=== PATIENT | male | born 1970 | race Hispanic/Latino ===

== ENCOUNTER 2017-03-31 09:49 | Inpatient (IN) | payer OTHER ==
--- NOTE | 2017-03-31 10:20 | ED PDOC ---
Arrival/HPI - General Chief Complaint: Syncope Time Seen by Provider: 03/31/17 09:49 Historian: Patient - History of Present Illness Narrative History of Present Illness (Text): 03/31/17 09:54 Chuck Castellanos is a 46 year old male, whose past medical history includes hypertension, who presents to the emergency department complaining of a syncopal episode prior to arrival. Patient states that he was just returning home when a family member heard a loud sound and found patient on the floor. Patient is complaining of mild chest heaviness and left rib pain. Patient denies any headache or any other complaint at this time. PMD: Dr. Garsia Time/Duration: Prior to Arrival Symptom Onset: Sudden Symptom Course: Improving Activities at Onset: Light Context: Home Past Medical History - Provider Review Nursing Documentation Reviewed: Yes - Infectious Disease Hx of Infectious Diseases: None - Cardiac Hx Hypertension: Yes - Psychiatric Hx Depression: No Hx Emotional Abuse: No Hx Physical Abuse: No Hx Substance Use: No - Anesthesia Hx Anesthesia: No Hx Anesthesia Reactions: No Hx Malignant Hyperthermia: No - Suicidal Assessment Feels Threatened In Home Enviroment: No Family/Social History - Physician Review Nursing Documentation Reviewed: Yes Family/Social History: Unknown Family HX Smoking Status: Heavy Smoker > 10 Cigarettes Daily Hx Alcohol Use: No Hx Substance Use: No Hx Substance Use Treatment: No Allergies/Home Meds Allergies/Adverse Reactions: Allergies No Known Allergies Allergy (Verified 08/23/13 09:40) Review of Systems - Physician Review All systems were reviewed & negative as marked: Yes - Review of Systems Constitutional: absent: Fevers, Night Sweats Eyes: absent: Vision Changes ENT: absent: Hearing Changes Respiratory: absent: SOB Cardiovascular: Chest Pain (Chest heaviness and left rib pain) Gastrointestinal: absent: Abdominal Pain Genitourinary Male: absent: Dysuria, Urinary Output Changes Musculoskeletal: absent: Arthralgias, Back Pain, Neck Pain Skin: absent: Rash, Pruritis Neurological: absent: Headache, Dizziness Endocrine: absent: Diaphoresis Hemo/Lymphatic: absent: Adenopathy Psychiatric: absent: Anxiety Physical Exam Vital Signs Reviewed: Yes Vital Signs Temp Pulse Resp BP Pulse Ox 03/31/17 13:53 98 F 88 20 127/82 97 03/31/17 12:51 98 F 96 H 19 123/75 96 03/31/17 09:57 98.1 F 98 H 18 99/55 L 97 Temperature: Afebrile Blood Pressure: Hypotensive Pulse: Tachycardic Respiratory Rate: Normal Appearance: Positive for: Other (Diaphoretic) - Systems Exam Head: Present: Atraumatic, Normocephalic Pupils: Present: PERRL Extroacular Muscles: Present: EOMI Conjunctiva: Present: Normal Mouth: Present: Moist Mucous Membranes Neck: Present: Normal Range of Motion Respiratory/Chest: Present: Other (Tenderness to Left chest wall ) Cardiovascular: Present: Regular Rate and Rhythm, Normal S1, S2. No: Murmurs Abdomen: Present: Normal Bowel Sounds. No: Tenderness, Distention, Peritoneal Signs Back: Present: Normal Inspection Upper Extremity: Present: Normal Inspection. No: Cyanosis, Edema Lower Extremity: Present: Normal Inspection. No: Edema Neurological: Present: GCS=15, CN II-XII Intact, Speech Normal, Motor Func Grossly Intact, Normal Sensory Function, Normal Cerebellar Funct, Norm Deep Tendon Reflexes, Gait Normal, Memory Normal, Normal 2Pt Descrimination Skin: Present: Warm, Dry, Normal Color. No: Rashes Psychiatric: Present: Alert, Oriented x 3, Normal Insight, Normal Concentration Medical Decision Making ED Course and Treatment: 03/31/17 09:54 Impression: 46 year old male complaining of chest heaviness and left rib pain s/p syncopal episode prior to arrival. Differential Diagnosis include but are not limited to: Plan: -- EKG -- Chest X-ray -- Chest CT w/o contrast -- Head CT w/o contrast -- Urinalysis -- Labs -- Reassess and disposition Prior Visits Notes and results from previous visits were reviewed. Patient last seen in ED on08/23/13 for 2 weeks duration of foot pain. Patient was discharged home. Progress Notes: EKG shows questionable elevtaions inferiorly with lateral lead ST depressions. Discussed with Dr. Muniz, who requests to repeat EKG. Will not activate at this time. 03/31/17 11:16 Chest X-ray: Creator : Cristopher Ashford MD FINDINGS: LUNGS:No active pulmonary disease. PLEURA:No significant pleural effusion identified, no pneumothorax apparent. CARDIOVASCULAR:Normal. OSSEOUS STRUCTURES:No significant abnormalities. VISUALIZED UPPER ABDOMEN:Normal. OTHER FINDINGS:None. IMPRESSION: No active disease. 03/31/17 11:[address] w/o contrast: Creator : Cristopher Ashford MD FINDINGS: HEMORRHAGE:No intracranial hemorrhage. BRAIN:No mass effect or edema. No atrophy or chronic microvascular ischemic changes. VENTRICLES:Unremarkable. No hydrocephalus. CALVARIUM:Unremarkable. PARANASAL SINUSES:Unremarkable as visualized. No significant inflammatory changes. MASTOID AIR CELLS:Unremarkable as visualized. No inflammatory changes. OTHER FINDINGS:None. IMPRESSION: No acute findings 03/31/17 11:[address] w/o contrast: Creator : Cristopher Ashford MD FINDINGS: LUNGS:Minimal ground-glass densities. No focal consolidation. No pneumothorax MEDIASTINUM: Unremarkable thoracic aorta. No aneurysm. Normal sized heart. The coronary arteries are heavily calcified. Main pulmonary artery unremarkable. No vascular congestion. No lymphadenopathy. PLEURA:No pleural fluid. No pneumothorax. BONES:No fracture. No destructive lesion. UPPER ABDOMEN:Left adrenal nodules consistent with adenomas OTHER FINDINGS:None. IMPRESSION: No acute findings 03/31/17 11:28 Patient is pain free after Heparin started. Case discussed with Dr. Godinez, who requests hospitalist for admission. - Lab Interpretations Lab Results: 03/31/17 10:26 03/31/17 10:26 Lab Results 03/31/17 10:26: TSH 3rd Generation 6.29 H 03/31/17 10:26: Triglycerides 155, Cholesterol 206 H, LDL Cholesterol Direct 163 H, HDL Cholesterol 30 03/31/17 10:26: Sodium 138, Potassium 3.9, Chloride 109 H, Carbon Dioxide 17 L, Anion Gap 16, BUN 15, Creatinine 0.9, Est GFR ( Amer) > 60, Est GFR (Non- Af Amer) > 60, Random Glucose 145 H, Calcium 9.0, Magnesium 2.0, Total Bilirubin 0.3, AST 26, ALT 45, Alkaline Phosphatase 73, Lactate Dehydrogenase 528, Total Creatine Kinase 107, Troponin I 0.36 H*, NT-Pro-B Natriuret Pep 1210 H, Total Protein 6.9, Albumin 4.0, Globulin 2.8, Albumin/Globulin Ratio 1.4 03/31/17 10:26: PT 10.5, INR 0.97, APTT 33.1 H 03/31/17 10:26: WBC 8.3, RBC 4.86, Hgb 14.5, Hct 43.0, MCV 88.5, MCH 29.8, MCHC 33.7, RDW 13.6, Plt Count 217, MPV 11.3 H, Gran % 58.2, Lymph % (Auto) 30.0, [place] % (Auto) 6.7 H, Eos % (Auto) 4.7, Baso % (Auto) 0.4, Gran # 4.84, Lymph # 2.5, [place] # 0.6, Eos # 0.4, Baso # 0.03 - RAD Interpretation Radiology Orders: 03/31/17 10:11 HEAD W/O CONTRAST [CT] Stat CHEST PORTABLE [RAD] Stat 03/31/17 10:15 CHEST W/O CONTRAST [CT] Stat - Medication Orders Current Medication Orders: Acetaminophen (Tylenol 325mg Tab) 650 mg PO Q6H PRN PRN Reason: Fever >100.4 F Albuterol/Ipratropium (Duoneb 3 Mg/0.5 Mg (3 Ml) Ud) 3 ml IH [id number] CHRISTINE Last Admin: 03/31/17 15:07 Dose: 3 ml Albuterol/Ipratropium (Duoneb 3 Mg/0.5 Mg (3 Ml) Ud) 3 ml IH Q2H PRN PRN Reason: Shortness of Breath Alprazolam (Xanax) 0.5 mg PO TID PRN; Protocol PRN Reason: Anxiety Aspirin (Ecotrin) 81 mg PO DAILY CHRISTINE Atorvastatin Calcium (Lipitor) 40 mg PO DIN [facility]RISTINE Clopidogrel Bisulfate (Plavix) 75 mg PO DAILY [facility]INE Cyclobenzaprine HCl (Flexeril) 10 mg PO TID PRN PRN Reason: Muscle spasm Famotidine (Pepcid) 20 mg PO 1000,2200 CHRISTINE Gabapentin (Neurontin) 600 mg PO DAILY [facility] PRN Reason: Protocol Guaifenesin (Robitussin) 100 mg PO Q4H PRN PRN Reason: Cough Heparin Sodium/Sodium Chloride (Heparin 45283 Units/250ml 1/2 Normal Saline) 25 ,000 units in 250 mls @ 13.063 mls/hr IV .Q19H9M CHRISTINE; 12 UNITS/KG/HR PRN Reason: Protocol Last Admin: 03/31/17 12:09 Dose: 12 units/kg/hr, 13.063 mls/hr Sodium Chloride (Sodium Chloride 0.9%) 1,000 mls @ 100 mls/hr IV .Q10H [facility] Last Admin: 03/31/17 12:58 Dose: 100 mls/hr Metoprolol Tartrate (Lopressor) 25 mg PO BID [facility] Nicotine (Nicoderm Cq) 1 patch TD DAILY [facility] Last Admin: 03/31/17 12:56 Dose: Not Given Non-Admin Reason: Patient Refused Tramadol HCl (Ultram) 50 mg PO TID PRN PRN Reason: Pain, moderate (4-7) Last Admin: 03/31/17 13:24 Dose: 50 mg Discontinued Medications Aspirin (Aspirin) 325 mg PO STAT STA Stop: 03/31/17 11:17 Last Admin: 03/31/17 11:29 Dose: 325 mg Clopidogrel Bisulfate (Plavix) 75 mg PO DAILY [facility] Last Admin: 03/31/17 12:14 Dose: 75 mg Clopidogrel Bisulfate (Plavix) 300 mg PO STAT STA Stop: 03/31/17 14:00 Last Admin: 03/31/17 14:48 Dose: 300 mg Heparin Sodium (Porcine) (Heparin) 4,000 units IV ONCE ONE PRN Reason: Protocol Stop: 03/31/17 11:17 Last Admin: 03/31/17 11:32 Dose: 4,000 units Disposition/Present on Arrival - Present on Arrival Any Indicators Present on Arrival: No History of DVT/PE: No History of Uncontrolled Diabetes: No Urinary Catheter: No History of Decub. Ulcer: No History Surgical Site Infection Following: None - Disposition Have Diagnosis and Disposition been Completed?: Yes Diagnosis: NSTEMI (non-ST elevated myocardial infarction) Disposition: HOSPITALIZED Disposition Time: 12:00 Patient Problems: Current Active Problems Problem Status Onset NSTEMI (non-ST elevated myocardial infarction) Acute Condition: FAIR Critical Care Time - Critical Care Note Total Time (in mins): 45 Documented critical care: time excludes all time spent performing seperately billable procedures.
[2017-03-31 10:27] LABS: ADD MANUAL DIFF? NO
[2017-03-31 10:32] LABS: BASO # 0.03 K/mm3 (0.0-2.0); BASO % 0.4 % (0.0-3.0); EOS # 0.4 (0.0-0.7); EOS % 4.7 % (1.5-5.0); GRAN # 4.84 (1.4-6.5); GRAN % 58.2 % (50.0-68.0); LYMPH # 2.5 (1.2-3.4); MEAN CELL VOLUME 88.5 fL (80.0-105.0); MEAN CORPUSCULAR HEMOGLOBIN 29.8 pg (25.0-35.0); MEAN CORPUSCULAR HGB CONC 33.7 g/dl (31.0-37.0); MEAN PLATELET VOLUME 11.3 fl (7.0-11.0); MONO # 0.6 (0.1-0.6); MONO % 6.7 % (1.0-6.0); PLATELET COUNT 217 10^3/uL (120.0-450.0); RED CELL DISTRIBUTION WIDTH 13.6 % (11.5-14.5); WHITE BLOOD COUNT 8.3 10^3/ul (4.5-11.0)
[2017-03-31 10:41] LABS: ALB/GLOB RATIO 1.4 (1.1-1.8); ALKALINE PHOSPHATASE 73 U/L (38-133); ALT/SGPT 45 U/L (7-56); AST/SGOT 26 U/L (15-59); BILIRUBIN,TOTAL 0.3 mg/dL (0.2-1.3); BLOOD UREA NITROGEN 15 mg/dL (7-21); CARBON DIOXIDE 17 mmol/L (21-33); CHLORIDE 109 mmol/L (98-107); GFR AFRICAN-AMERICAN > 60; GLUCOSE,RANDOM 145 mg/dL (70-110); POTASSIUM 3.9 mmol/L (3.6-5.0); SODIUM 138 mmol/L (132-148); TOTAL PROTEIN 6.9 g/dL (5.8-8.3)
[2017-03-31 10:43] LABS: PARTIAL THROMBOPLASTIN TIME 33.1 Seconds (23.7-30.8)
[2017-03-31 10:45] LABS: INR 0.97 (0.93-1.08)
[2017-03-31 10:57] LABS: TROPONIN I 0.36 ng/mL
--- NOTE | 2017-03-31 11:07 | RAD ---
HISTORY: cp COMPARISON: 04/18/2016 FINDINGS: LUNGS: No active pulmonary disease. PLEURA: No significant pleural effusion identified, no pneumothorax apparent. CARDIOVASCULAR: Normal. OSSEOUS STRUCTURES: No significant abnormalities. VISUALIZED UPPER ABDOMEN: Normal. OTHER FINDINGS: None. IMPRESSION: No active disease.
--- NOTE | 2017-03-31 11:13 | CT ---
PROCEDURE: CT HEAD WITHOUT CONTRAST. HISTORY: syncope COMPARISON: None available. TECHNIQUE: Axial computed tomography images were obtained through the head/brain without intravenous contrast. Radiation dose: Total exam DLP = 778 mGy-cm. This CT exam was performed using one or more of the following dose reduction techniques: Automated exposure control, adjustment of the mA and/or kV according to patient size, and/or use of iterative reconstruction technique. FINDINGS: HEMORRHAGE: No intracranial hemorrhage. BRAIN: No mass effect or edema. No atrophy or chronic microvascular ischemic changes. VENTRICLES: Unremarkable. No hydrocephalus. CALVARIUM: Unremarkable. PARANASAL SINUSES: Unremarkable as visualized. No significant inflammatory changes. MASTOID AIR CELLS: Unremarkable as visualized. No inflammatory changes. OTHER FINDINGS: None. IMPRESSION: No acute findings
--- NOTE | 2017-03-31 11:17 | CT ---
PROCEDURE: CT Chest without contrast HISTORY: fall COMPARISON: None. TECHNIQUE: Contiguous axial images were obtained through the chest without intravenous contrast enhancement. Sagittal and coronal reconstructions were performed. Radiation dose (DLP): 976 mGy-cm. This CT exam was performed using one or more of the following dose reduction techniques: Automated exposure control, adjustment of the mA and/or kV according to patient size, and/or use of iterative reconstruction technique. FINDINGS: LUNGS: Minimal ground-glass densities. No focal consolidation. No pneumothorax MEDIASTINUM: Unremarkable thoracic aorta. No aneurysm. Normal sized heart. The coronary arteries are heavily calcified. Main pulmonary artery unremarkable. No vascular congestion. No lymphadenopathy. PLEURA: No pleural fluid. No pneumothorax. BONES: No fracture. No destructive lesion. UPPER ABDOMEN: Left adrenal nodules consistent with adenomas OTHER FINDINGS: None. IMPRESSION: No acute findings
[2017-03-31] MEDS: Heparin25000 units/250ml 1/2NS 25,000 UNITS/250 ML BAG IV SCH (12:09)
[2017-03-31] MEDS ORDERED: Albuterol-Ipratrop 3 mg / 0.5 (3 ml) UD IH PRN (12:31)
--- NOTE | 2017-03-31 12:45 | CP.PCM.HP ---
<Marian Daley - Last Filed: 03/31/17 12:38> History of Present Illness - History of Present Illness History of Present Illness: 46 M with PMHx of HTN, toboacco abuse, former ETOH abuse, and chronic pain syndrome presented to [facility] ED with complaints of a syncopal episode and chest pressure and pain. Pt states that he went about his usual routine this morning, took his medications and subsequently went for a walk. However, upon returning to his house he happened to experience an unwitnessed syncopal episode and when he came to he was in front of police officers. Pt states that his chest pain began after he gained conciousness and described it as a pressure pain that did not radiate. Rated at a 7/10 at the time of onset. He also had complaints of left rib pain. He denied headaches, changes in vision, confusion, dizziness, fever, chills, abdominal pains, v/d/c or urinary symptoms. He admitted to nausea prior to ED arrival, sob, and diaphoresis. PMHx: As above PSHx: Denied Shx: PPD smoker, Former drinker quit 4 yrs ago, admits to marijuana use Famhx: Denied Meds: Gabapentin, nebutone, flexeril, oxycodone, lisinopril, vit d2, naproxen, tramadol Allergies: NKDA PMD: Dr. Garsia Handicraft Or Hobby Shop Manager: Dr. Mayorga Present on Admission - Present on Admission Any Indicators Present on Admission: No Review of Systems - Review of Systems Review of Systems: as per HPI otherwise negative Past Patient History - Infectious Disease Hx of Infectious Diseases: None - Past Social History Smoking Status: Heavy Smoker > 10 Cigarettes Daily - CARDIAC Hx Hypertension: Yes - PSYCHIATRIC Hx Depression: No Hx Emotional Abuse: No Hx Physical Abuse: No Hx Substance Use: No - SURGICAL HISTORY Hx Surgeries: No - ANESTHESIA Hx Anesthesia: No Hx Anesthesia Reactions: No Hx Malignant Hyperthermia: No Meds Allergies/Adverse Reactions: Allergies Allergy/AdvReac Type Severity Reaction Status Date / Time No Known Allergies Allergy Verified 08/23/13 09:40 Physical Exam - Constitutional Appears: No Acute Distress - Head Exam Head Exam: ATRAUMATIC, NORMAL INSPECTION, NORMOCEPHALIC - Eye Exam Eye Exam: EOMI, Normal appearance, PERRL Pupil Exam: NORMAL ACCOMODATION, PERRL - ENT Exam ENT Exam: Mucous Membranes Moist, Normal Exam - Neck Exam Neck exam: Positive for: Normal Inspection - Respiratory Exam Respiratory Exam: Rhonchi, NORMAL BREATHING PATTERN - Cardiovascular Exam Cardiovascular Exam: REGULAR RHYTHM - GI/Abdominal Exam GI & Abdominal Exam: Normal Bowel Sounds, Soft. absent: Tenderness - Extremities Exam Extremities exam: Positive for: normal inspection - Back Exam Back exam: NORMAL INSPECTION, paraspinal tenderness - Psychiatric Exam Psychiatric exam: Anxious - Skin Skin Exam: Dry, Intact, Normal Color, Warm Results - Vital Signs Recent Vital Signs: Last Vital Signs Temp 98.1 F 03/31/17 09:57 Pulse 98 H 03/31/17 09:57 Resp 18 03/31/17 09:57 BP 99/55 L 03/31/17 09:57 Pulse Ox 97 03/31/17 09:57 - Labs Result Diagrams: 03/31/17 10:26 03/31/17 10:26 Assessment & Plan - Assessment and Plan (Free Text) Assessment: 46 M with PMHx of HTN, toboacco abuse, former ETOH abuse, and chronic pain syndrome presented to [facility] ED with complaints of a syncopal episode and chest pressure and pain found to have positive troponin admitted for NSTEMI NSTEMI - heparin drip - cardiology consult, Dr. Muniz - asa, plavix, lipitor - FU serial tropnonins - Telemetry monitoring - Fu cbc/cmp/tsh/lipid/echo HTN - Hold home meds for now - continue to [facility] - HHD Tobacco abuse - ronchorous, duonebs and robitussin - Counselled on tobacco cessation - patch offered - xanax for anxiety/agitiation Chronic pain syndrome - gabapentin - tramadol - tylenol GI DVT ppx reviewed Seen reviewed and discussed with Dr. Lamas <Claudia Lamas - Last Filed: 03/31/17 14:59> Results - Vital Signs Recent Vital Signs: Last Vital Signs Temp 98 F 03/31/17 13:53 Pulse 88 03/31/17 13:53 Resp 20 03/31/17 13:53 BP 127/82 03/31/17 13:53 Pulse Ox 97 03/31/17 13:53 - Labs Result Diagrams: 03/31/17 10:26 03/31/17 10:26 Attending/Attestation - Attestation I have personally seen and examined this patient.: Yes I have fully participated in the care of the patient.: Yes I have reviewed all pertinent clinical information: Yes Notes (Text): 03/31/17 14:52 attending note; patient seen and examined with resident in ER. Patient is a 46 year old male with PMHx of HTN, toboacco abuse, former ETOH abuse, and chronic pain syndrome presented to [facility] ED with complaints of a syncopal episode and chest pressure and pain. The patient was found to be hypotensive in the ER. EKG showed Lateral lead ST depression with elevated troponin. Hypertension; resolving. Continue IV fluids. Patient already took lisinopril this morning. Non-ST elevation MD; continue aspirin,plavix, IV heparin drip. CT head and CT chest is negative. small contusion in the Left back. Cardiology evaluation with Dr. Muniz requested. echo requested. active smoking; smoking cessation is strongly advised. Started on NicoDerm patch. Chronic opiate abuse; continue Tylenol,tramadol. patient needs outpatient opiate rehabilitation. upon discharge the patient will follow-up with PMD Dr. Garsia. 03/31/17 14:57
[2017-03-31] MEDS: Sodium Chloride 0.9% 1,000 ML IV SCH ×2 (12:58→22:58)
[2017-03-31 13:45] LABS: CHOLESTEROL 206 mg/dL (130-200)
--- NOTE | 2017-03-31 13:47 | CARD ---
APPROVED REPORT EKG Measurement Heart [id number] PA [id number] [id number] <Conclusion> Poor data quality, interpretation may be adversely affected Normal sinus rhythm Posterior infarct, age undetermined ST & T wave abnormality, consider lateral ischemia Abnormal ECG
--- NOTE | 2017-03-31 13:48 | CARD ---
APPROVED REPORT EKG Measurement Heart [id number] NM [id number] <Conclusion> Normal sinus rhythm Left axis deviation Posterior infarct, possibly acute ST & T wave abnormality, consider lateral ischemia ACUTE NE Abnormal ECG
[2017-03-31] MEDS: Albuterol-Ipratrop 3 mg / 0.5 (3 ml) UD IH SCH ×2 (15:07→19:46)
[2017-03-31 17:24] VITALS: BMI 32.5
[2017-03-31 20:16] LABS: URINE BILIRUBIN NEGATIVE (NEGATIVE); URINE BLOOD NEGATIVE (NEGATIVE); URINE GLUCOSE (UA) NEGATIVE (NEGATIVE); URINE KETONE NEGATIVE (NEGATIVE); URINE LEUKOCYTE ESTERASE NEGATIVE Leu/uL (NEGATIVE); URINE PROTEIN TRACE mg/dL (<30 mg/dL); URINE UROBILINOGEN 0.2 E.U./dL (<1 E.U./dL)
[2017-03-31 20:21] LABS: URINE APPEARANCE CLEAR (CLEAR); URINE COLOR YELLOW (YELLOW)
[2017-03-31 20:33] LABS: URINE BACTERIA FEW (NEG); URINE RBC 0 - 2 /hpf (0-2); URINE WBC 0 - 2 /hpf (0-6)
[2017-03-31] MEDS: guaiFENesin 100 mg/5 ml Syrup UD PO PRN (20:46)
--- NOTE | 2017-03-31 21:13 | CON ---
DATE: 03/31/2017 SERVICE: Cardiology. REASON FOR CONSULTATION AND FOLLOWUP: Status post syncope, rule out non-STEMI. BRIEF CLINICAL HISTORY: This is a 46-year-old male, active tobacco abuse, hypertension, who said dorothy t he started on morning walk, as routine, and went to the pharmacy to get the medication for pain, bu t he did not ____ upset on the way home, came back home and all of a sudden he passed out. When he w cedric up, he saw the copier and printer field technician at the door and at that time, patient complained of some chest pain. Now, steve murillo's chest pain is completely free. The patient came to the ER. EKG was done and ____ with a code STEMI, so I have been called. I said that the patient may rule in non-STEMI versus not code STEMI a nd the patient's ____ CAT scan and then start heparin, which is started. Now the patient is chest pa in free and the family is at the bedside. PAST MEDICAL HISTORY: Significant for left shoulder pain, on tramadol, Naprosyn, oxycodone at home. SOCIAL HISTORY: Active tobacco abuse, 1 pack a day for many years. 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 REVIEW OF SYSTEMS: As per HPI. FAMILY HISTORY: Significant for coronary artery disease and 2 other ____ father's side. PHYSICAL EXAMINATION: VITAL SIGNS: Temperature afebrile, heart rate ____, blood pressure 123/75. HEENT: PERRLA. Extraocular muscles intact. NECK: Supple. No carotid bruits. No thyromegaly. CHEST: Clear to auscultation. HEART: S1, S2 regular. ABDOMEN: Soft. EXTREMITIES: Clubbing and cyanosis negative. LABORATORY DATA: Blood workup as follows: WBC 8.3, hemoglobin 14.5, hematocrit 43.0, platelet count 217. Chemistry shows sodium ____ potassium 3.9, chloride 109, carbon dioxide 17, anion gap of 16, B UN 15, creatinine 0.9. Troponin 0.36. BNP 1260. EKG shows normal sinus ____ ST elevation ____ ST d epression in anterior lead. IMPRESSION: Non-ST segment myocardial infarction, coronary artery disease, obesity, diabetes, hypert ension, hyperlipidemia, noncompliance with the medication, hypertension. RECOMMENDATION: Load with Plavix, aspirin. Continue heparin, low-dose ____ as blood pressures ivett ate it, low-dose beta-tanna. Discussed with the patient's and patient, possible cardiac arleth terization on Sunday. We will get echo to assess LV function. We will follow with you. Thank you, Dr. Lamas, for providing the opportunity in taking care of the patient. Cesar Muniz MD cc: [id number] TT: 03/31/2017 14:44:13 Confirmation # [id number] Dictation # [id number] [email or web address]
[2017-04-01] MEDS: Albuterol-Ipratrop 3 mg / 0.5 (3 ml) UD IH SCH ×4 (02:25→19:41)
[2017-04-01 07:27] LABS: ADD MANUAL DIFF? NO
[2017-04-01 08:05] LABS: BASO # 0.03 K/mm3 (0.0-2.0); BASO % 0.2 % (0.0-3.0); EOS % 0.1 % (1.5-5.0); GRAN # 12.06 (1.4-6.5); GRAN % 84.5 % (50.0-68.0); HEMATOCRIT 41.1 % (42.0-52.0); LYMPH # 1.3 (1.2-3.4); MEAN CORPUSCULAR HEMOGLOBIN 30.2 pg (25.0-35.0); MEAN CORPUSCULAR HGB CONC 34.3 g/dl (31.0-37.0); MEAN PLATELET VOLUME 11.2 fl (7.0-11.0); MONO # 0.9 (0.1-0.6); MONO % 6.2 % (1.0-6.0); PLATELET COUNT 184 10^3/uL (120.0-450.0); RED CELL DISTRIBUTION WIDTH 13.8 % (11.5-14.5); WHITE BLOOD COUNT 14.3 10^3/ul (4.5-11.0)
[2017-04-01 08:07] LABS: ALB/GLOB RATIO 1.3 (1.1-1.8); ALKALINE PHOSPHATASE 55 U/L (38-133); ALT/SGPT 83 U/L (7-56); AST/SGOT 394 U/L (15-59); BILIRUBIN,TOTAL 0.9 mg/dL (0.2-1.3); BLOOD UREA NITROGEN 10 mg/dL (7-21); CALCIUM 8.6 mg/dL (8.4-10.5); CARBON DIOXIDE 20 mmol/L (21-33); CHLORIDE 111 mmol/L (98-107); GFR AFRICAN-AMERICAN > 60; GLUCOSE,RANDOM 102 mg/dL (70-110); MAGNESIUM 1.9 mg/dL (1.7-2.2); PHOSPHOROUS 3.4 mg/dL (2.5-4.5); POTASSIUM 4.4 mmol/L (3.6-5.0); SODIUM 137 mmol/L (132-148); TOTAL PROTEIN 6.2 g/dL (5.8-8.3)
[2017-04-01] MEDS: Sodium Chloride 0.9% 1,000 ML IV SCH ×2 (08:18→22:38)
[2017-04-01] MEDS: Heparin25000 units/250ml 1/2NS 25,000 UNITS/250 ML BAG IV SCH (08:59)
--- NOTE | 2017-04-01 11:43 | CP.PCM.PN ---
<Marian Daley - Last Filed: 04/01/17 11:43> Subjective - Date & Time of Evaluation Date of Evaluation: 04/01/17 Time of Evaluation: 07:00 - Subjective Subjective: Pt was seen and examined at bedside. No acute complaints at this time. No acute or adverse events overnight as per nursing staff. Pt is tolerating diet and moving bowels and bladder regularly. Pt denied fever, chills, sob, chest pains, abdominal pains, v/d/c. Pt had mild complaints of nausea however have since resolved and is tolerating diet. Objective - Vital Signs/Intake and Output Vital Signs (last 24 hours): Temp Pulse Resp BP Pulse Ox 99.0 F 94 H 19 108/48 L 98 04/01/17 05:45 04/01/17 10:27 04/01/17 05:45 04/01/17 10:27 04/01/17 05:45 Intake and Output: 04/01/17 04/01/17 06:59 18:59 Intake Total 680 Output Total 800 Balance -120 - Medications Medications: Current Medications Acetaminophen (Tylenol 325mg Tab) 650 mg PO Q6H PRN PRN Reason: Fever >100.4 F Albuterol/Ipratropium (Duoneb 3 Mg/0.5 Mg (3 Ml) Ud) 3 ml IH [id number] [facility] Last Admin: 04/01/17 08:47 Dose: 3 ml Albuterol/Ipratropium (Duoneb 3 Mg/0.5 Mg (3 Ml) Ud) 3 ml IH Q2H PRN PRN Reason: Shortness of Breath Alprazolam (Xanax) 0.5 mg PO TID PRN; Protocol PRN Reason: Anxiety Last Admin: 04/01/17 10:29 Dose: 0.5 mg Aspirin (Ecotrin) 81 mg PO DAILY [facility] Last Admin: 04/01/17 10:26 Dose: 81 mg Atorvastatin Calcium (Lipitor) 40 mg PO DIN [facility] Last Admin: 03/31/17 17:53 Dose: 40 mg Clopidogrel Bisulfate (Plavix) 75 mg PO DAILY [facility] Last Admin: 04/01/17 10:28 Dose: 75 mg Cyclobenzaprine HCl (Flexeril) 10 mg PO TID PRN PRN Reason: Muscle spasm Last Admin: 04/01/17 10:26 Dose: 10 mg Famotidine (Pepcid) 20 mg PO 1000,2200 [facility] Last Admin: 04/01/17 10:28 Dose: 20 mg Gabapentin (Neurontin) 600 mg PO DAILY [facility] PRN Reason: Protocol Last Admin: 04/01/17 10:27 Dose: 600 mg Guaifenesin (Robitussin) 100 mg PO Q4H PRN PRN Reason: Cough Last Admin: 03/31/17 20:46 Dose: 100 mg Heparin Sodium/Sodium Chloride (Heparin 91689 Units/250ml 1/2 Normal Saline) 25 ,000 units in 250 mls @ 13.063 mls/hr IV .Q19H9M [facility]; 12 UNITS/KG/HR PRN Reason: Protocol Stop: 04/02/17 03:00 Last Admin: 04/01/17 08:59 Dose: 15.52 units/kg/hr, 16.9 mls/hr Sodium Chloride (Sodium Chloride 0.9%) 1,000 mls @ 100 mls/hr IV .Q10H [facility] Last Admin: 04/01/17 08:18 Dose: 100 mls/hr Metoprolol Tartrate (Lopressor) 25 mg PO BID [facility] Last Admin: 04/01/17 10:27 Dose: 25 mg Nicotine (Nicoderm Cq) 1 patch TD DAILY [facility] Last Admin: 04/01/17 10:27 Dose: Not Given Tramadol HCl (Ultram) 50 mg PO TID PRN PRN Reason: Pain, moderate (4-7) Last Admin: 03/31/17 20:47 Dose: 50 mg - Labs Labs: 04/01/17 07:00 04/01/17 07:00 PT 10.5 Seconds (9.9-11.8) 03/31/17 10:26 INR 0.97 (0.93-1.08) 03/31/17 10:26 APTT 42.9 Seconds (23.7-30.8) H 04/01/17 07:00 - Constitutional Appears: No Acute Distress - Head Exam Head Exam: ATRAUMATIC, NORMAL INSPECTION, NORMOCEPHALIC - Eye Exam Eye Exam: EOMI, Normal appearance, PERRL Pupil Exam: NORMAL ACCOMODATION, PERRL - ENT Exam ENT Exam: Mucous Membranes Moist, Normal Exam - Neck Exam Neck Exam: Full ROM, Normal Inspection. absent: Lymphadenopathy - Respiratory Exam Respiratory Exam: Clear to Ausculation Bilateral, NORMAL BREATHING PATTERN - Cardiovascular Exam Cardiovascular Exam: REGULAR RHYTHM, +S1, +S2. absent: Murmur - GI/Abdominal Exam GI & Abdominal Exam: Soft, Normal Bowel Sounds. absent: Tenderness - Extremities Exam Extremities Exam: Full ROM, Normal Capillary Refill, Normal Inspection. absent : Joint Swelling, Pedal Edema - Back Exam Back Exam: NORMAL INSPECTION - Neurological Exam Neurological Exam: Alert, Awake, CN II-XII Intact, Normal Gait, Oriented x3 - Psychiatric Exam Psychiatric exam: Normal Affect, Normal Mood - Skin Skin Exam: Dry, Intact, Normal Color, Warm Assessment and Plan - Assessment and Plan (Free Text) Assessment: 46 M with PMHx of HTN, toboacco abuse, former ETOH abuse, and chronic pain syndrome presented to [facility] with complaints of a syncopal episode and chest pressure and pain found to have positive troponin admitted for NSTEMI NSTEMI - heparin drip - cardiology consult, Dr. Muniz recommends cardiac cath tomorrow, npo at midnight - asa, plavix, lipitor - FU serial tropnonins, continues to uptrend will trend until peaks - Telemetry monitoring - Fu echo HTN - Low dose bb and acei as per cardio - continue to monitor - HHD Tobacco abuse - ronchorous, duonebs and robitussin - Counselled on tobacco cessation - patch offered - xanax for anxiety/agitiation Chronic pain syndrome - gabapentin - tramadol - tylenol GI DVT ppx reviewed Seen reviewed and discussed with Dr. Lamas <Claudia Lamas - Last Filed: 04/01/17 13:37> Objective - Vital Signs/Intake and Output Vital Signs (last 24 hours): Temp Pulse Resp BP Pulse Ox 97.8 F 81 19 97/61 L 98 04/01/17 12:00 04/01/17 12:00 04/01/17 12:00 04/01/17 12:00 04/01/17 05:45 Intake and Output: 04/01/17 04/01/17 06:59 18:59 Intake Total 680 Output Total 800 Balance -120 - Medications Medications: Current Medications Acetaminophen (Tylenol 325mg Tab) 650 mg PO Q6H PRN PRN Reason: Fever >100.4 F Albuterol/Ipratropium (Duoneb 3 Mg/0.5 Mg (3 Ml) Ud) 3 ml IH [id number] [facility] Last Admin: 04/01/17 08:47 Dose: 3 ml Albuterol/Ipratropium (Duoneb 3 Mg/0.5 Mg (3 Ml) Ud) 3 ml IH Q2H PRN PRN Reason: Shortness of Breath Alprazolam (Xanax) 0.5 mg PO TID PRN; Protocol PRN Reason: Anxiety Last Admin: 04/01/17 10:29 Dose: 0.5 mg Aspirin (Ecotrin) 81 mg PO DAILY [facility] Last Admin: 04/01/17 10:26 Dose: 81 mg Atorvastatin Calcium (Lipitor) 40 mg PO DIN [facility] Last Admin: 03/31/17 17:53 Dose: 40 mg Clopidogrel Bisulfate (Plavix) 75 mg PO DAILY [facility] Last Admin: 04/01/17 10:28 Dose: 75 mg Cyclobenzaprine HCl (Flexeril) 10 mg PO TID PRN PRN Reason: Muscle spasm Last Admin: 04/01/17 10:26 Dose: 10 mg Famotidine (Pepcid) 20 mg PO 1000,2200 [facility] Last Admin: 04/01/17 10:28 Dose: 20 mg Gabapentin (Neurontin) 600 mg PO DAILY [facility] PRN Reason: Protocol Last Admin: 04/01/17 10:27 Dose: 600 mg Guaifenesin (Robitussin) 100 mg PO Q4H PRN PRN Reason: Cough Last Admin: 03/31/17 20:46 Dose: 100 mg Heparin Sodium/Sodium Chloride (Heparin 76538 Units/250ml 1/2 Normal Saline) 25 ,000 units in 250 mls @ 13.063 mls/hr IV .Q19H9M [facility]; 12 UNITS/KG/HR PRN Reason: Protocol Stop: 04/02/17 03:00 Last Admin: 04/01/17 08:59 Dose: 15.52 units/kg/hr, 16.9 mls/hr Sodium Chloride (Sodium Chloride 0.9%) 1,000 mls @ 100 mls/hr IV .Q10H [facility] Last Admin: 04/01/17 08:18 Dose: 100 mls/hr Metoprolol Tartrate (Lopressor) 25 mg PO BID [facility] Last Admin: 04/01/17 10:27 Dose: 25 mg Nicotine (Nicoderm Cq) 1 patch TD DAILY [facility] Last Admin: 04/01/17 10:27 Dose: Not Given Tramadol HCl (Ultram) 50 mg PO TID PRN PRN Reason: Pain, moderate (4-7) Last Admin: 03/31/17 20:47 Dose: 50 mg - Labs Labs: 04/01/17 07:00 04/01/17 07:00 PT 10.5 Seconds (9.9-11.8) 03/31/17 10:26 INR 0.97 (0.93-1.08) 03/31/17 10:26 APTT 42.9 Seconds (23.7-30.8) H 04/01/17 07:00 Attending/Attestation - Attestation I have personally seen and examined this patient.: Yes I have fully participated in the care of the patient.: Yes I have reviewed all pertinent clinical information, including history, physical exam and plan: Yes Notes (Text): 04/01/17 13:35 attending note; patient seen and examined with resident in ER. Patient is a 46 year old male with PMHx of HTN, toboacco abuse, former ETOH abuse, and chronic pain syndrome presented to [facility] with complaints of a syncopal episode and chest pressure and pain. EKG showed Lateral lead ST depression with elevated troponin. Non-ST elevation AL; continue aspirin,plavix and IV heparin drip. CT head and CT chest is negative. Cardiology evaluation with Dr. Muniz appreciated. plan for cardiac cath in am. active smoking; smoking cessation is strongly advised. Started on NicoDerm patch. Chronic opiate abuse; continue Tylenol,tramadol. patient needs outpatient opiate rehabilitation. upon discharge the patient will follow-up with PMD Dr. Garsia. 04/01/17 13:36
--- NOTE | 2017-04-01 13:02 | PN ---
DATE: 04/01/2017 REASON FOR CONSULTATION AND FOLLOWUP: Status post syncope, [id number] myocardial infarction, asy mptomatic. BRIEF CLINICAL HISTORY: This is a 46-year-old active tobacco abuse, hypertension, admitted for synco pe, [id number] myocardial infarction. Denies any chest pain. On heparin. PHYSICAL EXAMINATION: VITAL SIGNS: Temperature afebrile, heart rate 94, blood pressure 108/48. HEENT: PERRLA. Extraocular muscles intact. NECK: Supple. No carotid bruits. No thyromegaly. CHEST: Clear to auscultation. HEART: S1, S2 regular. ABDOMEN: Soft. EXTREMITIES: Clubbing and cyanosis negative. LABORATORY DATA: Blood workup as follows: WBC ____, hemoglobin ____, hematocrit 41.1, platelet coun t 184. Chemistry shows sodium 137, potassium ____, chloride 111, carbon dioxide 20, anion gap of 10, BUN 10, creatinine 0.7. Troponin this morning is 55.5. EKG shows normal sinus, ST depression in V5 , V6. IMPRESSION: Non-ST segment myocardial infarction, coronary artery disease, active tobacco abuse, hyp ertension. RECOMMENDATION: Continue heparin. Stop heparin at 2:00 a.m. Continue aspirin, Plavix, atorvastatin , metoprolol, cardiac catheterization tomorrow. Keep n.p.o. after 12:00 midnight for cardiac cathete rization ____ discussed with the patient. The patient agreed. Will proceed for cardiac catheterizat ion. The patient is asymptomatic. Will cath tomorrow. If the patient was symptomatic, we would have done emergent cath today, but since the patient is asymptomatic, we will proceed for cardiac cathete rization in the morning. Cesar Muniz MD cc: [id number] TT: 04/01/2017 13:00:54 Confirmation # [id number] Dictation # [id number] [email or web address]
[2017-04-01] MEDS ORDERED: Sodium Chloride 0.9% 500 ML IV STA (19:26)
[2017-04-01] MEDS: guaiFENesin 100 mg/5 ml Syrup UD PO PRN (21:22)
[2017-04-02] MEDS: Albuterol-Ipratrop 3 mg / 0.5 (3 ml) UD IH SCH ×3 (02:17→13:31)
[2017-04-02 06:35] LABS: ADD MANUAL DIFF? NO
[2017-04-02 07:06] LABS: BASO # 0.03 K/mm3 (0.0-2.0); BASO % 0.2 % (0.0-3.0); GRAN # 16.45 (1.4-6.5); GRAN % 83.9 % (50.0-68.0); HEMATOCRIT 40.7 % (42.0-52.0); LYMPH # 1.5 (1.2-3.4); LYMPH % 7.6 % (22.0-35.0); MEAN CELL VOLUME 87.7 fL (80.0-105.0); MEAN CORPUSCULAR HGB CONC 34.2 g/dl (31.0-37.0); MEAN PLATELET VOLUME 11.6 fl (7.0-11.0); MONO # 1.6 (0.1-0.6); MONO % 8.3 % (1.0-6.0); PLATELET COUNT 158 10^3/uL (120.0-450.0); RED CELL DISTRIBUTION WIDTH 13.8 % (11.5-14.5); WHITE BLOOD COUNT 19.6 10^3/ul (4.5-11.0)
[2017-04-02 07:16] LABS: ALB/GLOB RATIO 1.3 (1.1-1.8); ALKALINE PHOSPHATASE 53 U/L (38-133); ALT/SGPT 73 U/L (7-56); AST/SGOT 259 U/L (15-59); BILIRUBIN,TOTAL 1.3 mg/dL (0.2-1.3); BLOOD UREA NITROGEN 10 mg/dL (7-21); CALCIUM 8.7 mg/dL (8.4-10.5); CARBON DIOXIDE 20 mmol/L (21-33); CHLORIDE 108 mmol/L (98-107); GFR AFRICAN-AMERICAN > 60; GLUCOSE,RANDOM 109 mg/dL (70-110); MAGNESIUM 1.8 mg/dL (1.7-2.2); PHOSPHOROUS 2.4 mg/dL (2.5-4.5); POTASSIUM 4.2 mmol/L (3.6-5.0); SODIUM 136 mmol/L (132-148); TOTAL PROTEIN 6.4 g/dL (5.8-8.3)
[2017-04-02] MEDS ORDERED: Lidocaine 2% Inj (20ml) ONE (11:13)
[2017-04-02] MEDS ORDERED: Nitroglycerin 50mg in D5W 50 MG/250 ML BOTTLE IV ONE (11:14)
[2017-04-02] MEDS ORDERED: Iodixanol 320 MG/ML 200 ML BOTTLE IV ONE (11:14)
[2017-04-02] MEDS ORDERED: Midazolam 2 MG/2 ML VIAL ONE ×2 (11:39→13:11)
--- NOTE | 2017-04-02 12:58 | CP.PCM.PN ---
<Marian Daley - Last Filed: 04/02/17 15:09> Subjective - Date & Time of Evaluation Date of Evaluation: 04/02/17 Time of Evaluation: 10:00 - Subjective Subjective: Pt was seen and examined at bedside. No acute complaints at this time. No acute or adverse events overnight as per nursing staff. Pt is tolerating diet and moving bowels and bladder regularly. Pt denied fever, chills, sob, chest pains, abdominal pains, v/d/c. Pt had mild complaints of nausea however have since resolved and is tolerating diet. Pt found to have 3 vessel dz and arranging for transfer to [facility] for CABG. Objective - Vital Signs/Intake and Output Vital Signs (last 24 hours): Temp Pulse Resp BP Pulse Ox 98.0 F 108 H 20 102/65 98 04/02/17 06:00 04/02/17 10:00 04/02/17 06:00 04/02/17 09:01 04/02/17 06:00 Intake and Output: 04/02/17 04/02/17 06:59 18:59 Intake Total 1200 Balance 1200 - Medications Medications: Current Medications Acetaminophen (Tylenol 325mg Tab) 650 mg PO Q6H PRN PRN Reason: Fever >100.4 F Last Admin: 04/01/17 22:37 Dose: 650 mg Albuterol/Ipratropium (Duoneb 3 Mg/0.5 Mg (3 Ml) Ud) 3 ml IH [id number] [facility] Last Admin: 04/02/17 07:53 Dose: 3 ml Albuterol/Ipratropium (Duoneb 3 Mg/0.5 Mg (3 Ml) Ud) 3 ml IH Q2H PRN PRN Reason: Shortness of Breath Alprazolam (Xanax) 0.5 mg PO TID PRN; Protocol PRN Reason: Anxiety Last Admin: 04/01/17 21:24 Dose: 0.5 mg Aspirin (Ecotrin) 81 mg PO DAILY [facility] Last Admin: 04/02/17 09:01 Dose: 81 mg Atorvastatin Calcium (Lipitor) 40 mg PO DIN [facility] Last Admin: 04/01/17 17:36 Dose: 40 mg Clopidogrel Bisulfate (Plavix) 75 mg PO DAILY [facility] Last Admin: 04/02/17 09:01 Dose: 75 mg Cyclobenzaprine HCl (Flexeril) 10 mg PO TID PRN PRN Reason: Muscle spasm Last Admin: 04/01/17 21:23 Dose: 10 mg Famotidine (Pepcid) 20 mg PO 1000,2200 [facility] Last Admin: 04/02/17 09:04 Dose: Not Given Gabapentin (Neurontin) 600 mg PO DAILY [facility] PRN Reason: Protocol Last Admin: 04/02/17 09:03 Dose: Not Given Guaifenesin (Robitussin) 100 mg PO Q4H PRN PRN Reason: Cough Last Admin: 04/01/17 21:22 Dose: 100 mg Sodium Chloride (Sodium Chloride 0.9%) 1,000 mls @ 100 mls/hr IV .Q10H [facility] Last Admin: 04/01/17 22:38 Dose: 100 mls/hr Metoprolol Tartrate (Lopressor) 25 mg PO BID [facility] Last Admin: 04/02/17 09:01 Dose: 25 mg Nicotine (Nicoderm Cq) 1 patch TD DAILY [facility] Last Admin: 04/02/17 09:04 Dose: Not Given Tramadol HCl (Ultram) 50 mg PO TID PRN PRN Reason: Pain, moderate (4-7) Last Admin: 04/01/17 21:24 Dose: 50 mg - Labs Labs: 04/02/17 05:10 04/02/17 05:10 PT 10.5 Seconds (9.9-11.8) 03/31/17 10:26 INR 0.97 (0.93-1.08) 03/31/17 10:26 APTT 61.3 Seconds (23.7-30.8) H 04/01/17 15:00 - Constitutional Appears: Well, No Acute Distress - Head Exam Head Exam: ATRAUMATIC, NORMAL INSPECTION, NORMOCEPHALIC - Eye Exam Eye Exam: EOMI, Normal appearance, PERRL Pupil Exam: NORMAL ACCOMODATION, PERRL - ENT Exam ENT Exam: Mucous Membranes Moist, Normal Exam - Neck Exam Neck Exam: Full ROM, Normal Inspection. absent: Lymphadenopathy - Respiratory Exam Respiratory Exam: Clear to Ausculation Bilateral, NORMAL BREATHING PATTERN - Cardiovascular Exam Cardiovascular Exam: REGULAR RHYTHM, +S1, +S2. absent: Murmur - GI/Abdominal Exam GI & Abdominal Exam: Soft, Normal Bowel Sounds. absent: Tenderness - Extremities Exam Extremities Exam: Full ROM, Normal Capillary Refill, Normal Inspection. absent : Joint Swelling, Pedal Edema - Back Exam Back Exam: NORMAL INSPECTION - Neurological Exam Neurological Exam: Alert, Awake, CN II-XII Intact, Normal Gait, Oriented x3 - Psychiatric Exam Psychiatric exam: Normal Affect, Normal Mood - Skin Skin Exam: Dry, Intact, Normal Color, Warm Assessment and Plan - Assessment and Plan (Free Text) Assessment: 46 M with PMHx of HTN, toboacco abuse, former ETOH abuse, and chronic pain syndrome presented to [facility] with complaints of a syncopal episode and chest pressure and pain found to have positive troponin admitted for NSTEMI. Pt found to have 3 vessel dz and arranging for transfer to [facility] for CABG. NSTEMI - cardiology consult, Dr. Muniz recommends cardiac cath this morning, pt found to have 3 vessel dz and arranging for transfer to [facility] for CABG. - asa, plavix, lipitor - Telemetry monitoring HTN - Low dose bb and acei as per cardio - continue to monitor - HHD Tobacco abuse - duonebs and amintaitussin - Counselled on tobacco cessation - patch offered - xanax for anxiety/agitiation Chronic pain syndrome - gabapentin - tramadol - tylenol GI DVT ppx reviewed Seen reviewed and discussed with Dr. Lamas Upon DC pt will FU with PMD Dr. Garsia and Cardiology Dr. Muniz <Claudia Lamas - Last Filed: 04/02/17 16:54> Objective - Vital Signs/Intake and Output Vital Signs (last 24 hours): Temp Pulse Resp BP Pulse Ox 98.9 F 55 L 20 120/58 L 98 04/02/17 16:48 04/02/17 16:48 04/02/17 16:48 04/02/17 16:48 04/02/17 06:00 Intake and Output: 04/02/17 04/02/17 06:59 18:59 Intake Total 1200 Balance 1200 - Medications Medications: Current Medications Acetaminophen (Tylenol 325mg Tab) 650 mg PO Q6H PRN PRN Reason: Fever >100.4 F Last Admin: 04/01/17 22:37 Dose: 650 mg Albuterol/Ipratropium (Duoneb 3 Mg/0.5 Mg (3 Ml) Ud) 3 ml IH [id number] [facility] Last Admin: 04/02/17 13:31 Dose: Not Given Albuterol/Ipratropium (Duoneb 3 Mg/0.5 Mg (3 Ml) Ud) 3 ml IH Q2H PRN PRN Reason: Shortness of Breath Alprazolam (Xanax) 0.5 mg PO TID PRN; Protocol PRN Reason: Anxiety Last Admin: 04/02/17 14:10 Dose: 0.5 mg Aspirin (Ecotrin) 81 mg PO DAILY [facility] Last Admin: 04/02/17 09:01 Dose: 81 mg Atorvastatin Calcium (Lipitor) 40 mg PO DIN [facility] Last Admin: 04/01/17 17:36 Dose: 40 mg Cyclobenzaprine HCl (Flexeril) 10 mg PO TID PRN PRN Reason: Muscle spasm Last Admin: 04/01/17 21:23 Dose: 10 mg Famotidine (Pepcid) 20 mg PO 1000,2200 [facility] Last Admin: 04/02/17 09:04 Dose: Not Given Gabapentin (Neurontin) 600 mg PO DAILY [facility] PRN Reason: Protocol Last Admin: 04/02/17 09:03 Dose: Not Given Guaifenesin (Robitussin) 100 mg PO Q4H PRN PRN Reason: Cough Last Admin: 04/01/17 21:22 Dose: 100 mg Sodium Chloride (Sodium Chloride 0.9%) 1,000 mls @ 50 mls/hr IV .Q20H [facility] Stop: 04/02/17 19:00 Last Admin: 04/02/17 14:10 Dose: 50 mls/hr Lorazepam (Ativan) 1 mg IVP Q4 PRN; Protocol PRN Reason: Anxiety Last Admin: 04/02/17 15:09 Dose: 1 mg Metoprolol Tartrate (Lopressor) 25 mg PO BID [facility] Last Admin: 04/02/17 09:01 Dose: 25 mg Morphine Sulfate (Morphine) 1 mg IVP Q4H PRN PRN Reason: Pain, severe (8-10) Nicotine (Nicoderm Cq) 1 patch TD DAILY [facility] Last Admin: 04/02/17 09:04 Dose: Not Given Tramadol HCl (Ultram) 50 mg PO TID PRN PRN Reason: Pain, moderate (4-7) Last Admin: 06/26/17 16:18 Dose: 50 mg - Labs Labs: 04/02/17 05:10 04/02/17 05:10 PT 10.5 Seconds (9.9-11.8) 03/31/17 10:26 INR 0.97 (0.93-1.08) 03/31/17 10:26 APTT 61.3 Seconds (23.7-30.8) H 04/01/17 15:00 Attending/Attestation - Attestation I have personally seen and examined this patient.: Yes I have fully participated in the care of the patient.: Yes I have reviewed all pertinent clinical information, including history, physical exam and plan: Yes Notes (Text): 04/02/17 16:50 attending note; patient seen and examined with resident. Patient is a 46 year old male with PMHx of HTN, toboacco abuse, former ETOH abuse, and chronic pain syndrome presented to [facility] with complaints of a syncopal episode and chest pressure and pain. EKG showed Lateral lead ST depression with elevated troponin. Non-ST elevation PA; continue aspirin,plavix and IV heparin drip. CT head and CT chest is negative. Cardiology evaluation with Dr. Muniz appreciated. s/p cath today showed triple vessel disease. We will transfer patient to [facility] for CABG. active smoking; smoking cessation is strongly advised. Chronic opiate abuse; continue Tylenol,tramadol. patient needs outpatient opiate rehabilitation. anxiety; started on IV Ativan. Awaiting Transfer to [facility]. upon discharge the patient will follow-up with PMD Dr. Garsia.
[2017-04-02] MEDS ORDERED: Bacitracin 500 Units/gm Oint Foilpak UD TOP ONE (13:57)
[2017-04-02] MEDS ORDERED: Sodium Chloride 0.9% 1,000 ML IV SCH (14:00)
[2017-04-02] MEDS ORDERED: Morphine 2 mg/ml ISec IVP PRN (14:56)
--- NOTE | 2017-04-02 16:23 | PN ---
DATE: 04/02/2017 REASON FOR CONSULTATION AND FOLLOWUP: Non-ST segment myocardial infarction, status post cardiac cath , triple vessel disease including left main. BRIEF CLINICAL HISTORY: A 46-year-old, active tobacco abuse, hypertension. Admitted with near synco pe, non-ST segment myocardial infarction. Underwent cardiac catheterization, details as below. Faheem es any further episodes of chest pain. PHYSICAL EXAMINATION: VITAL SIGNS: Temperature afebrile, heart rate , blood pressure 107/78. HEENT: PERRLA. Extraocular muscles intact. NECK: Supple. No carotid bruits. No thyromegaly. CHEST: Clear to auscultation. HEART: S1, S2 regular. ABDOMEN: Soft. EXTREMITIES: Clubbing, cyanosis negative. BLOOD WORKUP: WBC 19.6, hemoglobin 13, hematocrit 40.7, platelet count 158. Chemistry shows sodium , potassium 4. , chloride 108, carbon dioxide 20, anion gap of 12, BUN 10, creatinine 0.7. Troponin is 41.7. IMPRESSION: Non-ST segment myocardial infarction, coronary artery disease, active tobacco abuse, sta tus post cardiac catheterization that revealed distal left main has 80%-90%, ostial left anterior prieto cending 95%, circ proximal is 80% stenosis, mid right coronary artery 80% stenosis, left ventricular function decreased 35%. RECOMMENDATION: Discontinue Plavix. Continue aspirin, continue beta tanna, continue Lasix, contin ue atorvastatin. Send the patient for open heart surgical evaluation. Will follow with you. Thank you, Dr. Lamas, for providing us the opportunity in taking care of the patient. Discussed with the patient's aunt and discussed with the patient. Arrangement is being made to transfer the kyara burks to [facility] for open heart surgical evaluation. Cesar Muniz MD cc: [id number] TT: 04/02/2017 16:22:37 Confirmation # [id number] Dictation # [id number]
[2017-04-02 16:48] VITALS: TEMP 98.9
[2017-04-02] MEDS: guaiFENesin 100 mg/5 ml Syrup UD PO PRN (17:31)
--- NOTE | 2017-04-02 17:44 | CARD ---
APPROVED REPORT Procedure(s) performed: Left Heart Catheterization HISTORY The patient is a 46 year-old male with a history of : tobacco history() : The patient is a current smoker , Admitted with ACS/ NSTEMI. INDICATION The indication(s) include : non-STEMI . CASE TECHNIQUE The patient was brought urgently to the Cardiac Catheterization Laboratory in a fasting state and was prepped and draped in a sterile manner. The left wrist was infiltrated with 2% Lidocaine subcutaneous anesthesia. A sheath was inserted into the left radial artery without difficulty. Coronary angiography was performed using coronary diagnostic catheters. The left coronary system was accessed and visualized with a Diagnostic ,JL4.0 5 Fr catheter. The right coronary system was accessed and visualized with a Diagnostic , Jr 4.05 Fr catheter. The left ventricle was accessed and visualized with a Pig tail catheter. Left ventricular/Aortic Valve gradient assessed on pullback. Left ventriculogram was performed in BROWN projection. Closure device was deployed with a Fr TR Band without any complications. The patient tolerated the procedure well and there were no complications associated with the procedure. Vessel Analysis The patient's coronary anatomy is co-dominant. The left main coronary artery is a medium size vessel with diffuse calcification noted throughout this vessel and with significant stenosis. There is a 60-70% stenosis . The left main bifurcates to the left anterior descending and circumflex. The left anterior descending artery is a large size vessel with diffuse calcification noted throughout this vessel and with significant stenosis. There is a 95% stenosis in the ostial segment. mid LAD has 70-80% The first diagonal branch is a small size vessel with diffuse calcification noted throughout this vessel and without significant stenosis. The circumflex artery is a medium size vessel with diffuse calcification noted throughout this vessel and with significant stenosis. There is a 80-90% stenosis in the proximal segment. The first obtuse marginal branch is a medium size vessel with diffuse calcification noted throughout this vessel and without significant stenosis. The left posterior descending artery is a medium size vessel with diffuse calcification noted throughout this vessel and without significant stenosis. The right coronary artery is a medium size vessel with diffuse calcification noted throughout this vessel and with significant stenosis. There is a 70% stenosis in the mid segment. The right posterolateral branch is a small size vessel with diffuse calcification noted throughout this vessel and without significant stenosis. Left Ventricle The left ventricle is enlarged in size with Moderately decreased contractility. Ischemic cardiomyopathy. The left ventricular ejection fraction is estimated to be 25-30%. The left ventricular end diastolic pressure is 25 mmHg. There was no gradient across the aortic valve upon pullback. Conclusion Triple Vessel CAD including Distal Left Main Decreased LV Fx. EF-25-30%, EDP-25 T2 DM, HTN, Hyperlipidemia Calcified Coronaries Non Compliance to meds Active Tobacco Abuser Recommendations [facility] eval for CABG for complete revascularization Pt. would be Tx to [facility] on avilability of bed Interm continue ASa, Atorvastatin. LAsix, ALIYAH and Beyta tanna as BP is tolerated. CC; Dr. Lamas.
[2017-04-02] MEDS ORDERED: Levalbuterol 0.63 MG/3 ML Inhal Soln UD IH PRN (18:32)
[2017-04-02] MEDS ORDERED: Thiamine 100 mg/ml Inj IM STA (18:47)
[2017-04-02] MEDS ORDERED: Sodium Phosphate 15 MMOLE in Sodium Chloride 0.9% 250 ML IVPB ONE (21:06)
--- NOTE | 2017-04-02 21:11 | PCM.RRTMUL ---
CUSTOMER TECHNICAL SERVICES MANAGER Nurse Assessment - Situation CUSTOMER TECHNICAL SERVICES MANAGER Responder Arrival Time:: 20:45 Room Number:: 273-01 CUSTOMER TECHNICAL SERVICES MANAGER Called By: RN - Respiratory Oxygen Delivery Method:: Mask - Ventilator Settings FIO2 (% Oxygen):: 95 - Medication Medications Administered During CUSTOMER TECHNICAL SERVICES MANAGER :: a total of 6mg of IV Ativan was given as well as 20mg of IM Geodon for patient safety. One to one was also ordered CPR started during CUSTOMER TECHNICAL SERVICES MANAGER?: No - Vital Signs Blood Pressure:: 102/56 Pulse Rate:: 110 Respiratory Rate:: 21 - Garth Coma Scale Coma Scale Eye Opening:: Spontaneous Coma Scale Motor:: Obeys Commands Movement Coma Scale Verbal:: Confused/able to answer Coma Scale Total:: 14 - Time CUSTOMER TECHNICAL SERVICES MANAGER Ended Time CUSTOMER TECHNICAL SERVICES MANAGER Ended:: 21:07 - Recommendations 5) CUSTOMER TECHNICAL SERVICES MANAGER Level of Care Recommendations: Remain in current setting 6) Notifications: Attending Physician, Family or Designated Caregiver (The patient is extremely delirious, keeps stating that he needs to go home to smoke cigarettes or to check on his cat. he does not realize that he is currently in the hospital and keeps saying "he was just in [facility]" even though he is still currently under our care. He is up for transfer for CABG for multivessel disease ) I.Reason for CUSTOMER TECHNICAL SERVICES MANAGER - A) Acute Change in Patient: (Select all that apply): Acute change in mental status - Constitutional Appears: Non-toxic - Head Head Exam: ATRAUMATIC - Eyes Eye Exam: EOMI - Respiratory Exam Respiratory Exam: Clear to Ausculation Bilateral, NORMAL BREATHING PATTERN. absent: Rales, Rhonchi, Wheezes - Cardiovascular Exam Cardiovascular Exam: Tachycardia, REGULAR RHYTHM - Neurological Exam Neurological Exam: Altered, CN II-XII Intact. absent: Normal Gait, Oriented x3 (patient is extremely agitated attempting to get otu of bed with unsteady gait ) - Extremities Exam Extremities Exam: Normal Inspection. absent: Calf Tenderness Plan - B. Assessment of Findings&Treatment Plan AMS 2/2 to Hospital Induced Delirium Patient is delirious Currently having NSTEMI; multivessel disease requiring transfer; we are awaiting a bed to become available a total of 6mg of IV Ativan were ordered as well as 20mg of IM Geodon Patient is more calm; may require physical restraints if does not respond to medications Thiamine and Folate were ordered earlier today; patient was former alcoholic unknown if he has been drinking recently CIWA is 33; will order PRN Ativan 4mg Q3H as well for further symptoms 1:1 ordered Cat scan reviewed from admission; no acute findings; patient had sustained fall earlier in the week Will continue to monitor Case discussed with Dr. Sherry Morales PGY1 Night Float
[2017-04-02] MEDS ORDERED: Midazolam 2 MG/2 ML VIAL IVP ONE (21:20)
[2017-04-02] MEDS ORDERED: Levalbuterol 1.25 MG/3 ML Inhal Soln UD IH SCH (21:30)
--- NOTE | 2017-04-02 23:09 | CP.PCM.PRO ---
<Weston Morales - Last Filed: 04/02/17 23:08> Pronouncement of Note - Clinical Findings Physical Exam: No Response Verbal/Painful Stimuli, Absent Peripheral Pulses{ Carotid & Femoral}, Absent Heart & Breath Sounds, No Pupillary Light Reflex, No Corneal Reflex, Pupils Fixed & Dilated, Absence of Vital Signs - Pronouncement Time Time of Pronouncement of : 23:04 - Notifications Pronouncement Notifications: Family Notified, Atending Notified - [place] Additional Comments: please refer to TABLET REPAIR note for code procedure <Cruz Caceres MD - Last Filed: 04/03/17 02:38> Pronouncement of Note - [place] [id number] Additional Comments: Patient's mother and aunt were notifed in person at bedside approx 20-30min after patient's . Primary team will also be notifed in AM by me.
--- NOTE | 2017-04-02 23:15 | CP.PCM.PN ---
Subjective - Date & Time of Evaluation Date of Evaluation: 04/02/17 Time of Evaluation: 21:45 - Subjective Subjective: Has responded to code cornejo. Patient was confused, agitated trying to get out of bed, trying to go to home, demanded to smoke cigarette. He was hypoxic. His pulse ox was 86 % after he was kept on 100 % non re breathing mask. He was gasping for air at one point , it was decided to intubate. He was intubated with size 7.5 ETT. Was intubated without difficulty, position was confirmed by direct visualization , CO2 detector, and auscultation. At one point patient had VTACH. Amiodarone 150 mg IV was given. Amiodarone drip was started. BP 119/67, HR 96/min , pulse ox 97%. Patient was transferred to CCU. Discussed with ,. Spoke to Shantell , sister and informed that he is intubated and being transferred to CCU.Also got consent from her to insert central line after explaining to her in detail. CRITICAL CARE TIME SPENT :45 MINUTES. Objective - Vital Signs/Intake and Output Vital Signs (last 24 hours): Temp Pulse Resp BP Pulse Ox 98.9 F 110 H 21 102/56 L 98 04/02/17 16:48 04/02/17 21:13 04/02/17 21:13 04/02/17 21:13 04/02/17 06:00 - Medications Medications: Current Medications Acetaminophen (Tylenol 325mg Tab) 650 mg PO Q6H PRN PRN Reason: Fever >100.4 F Last Admin: 04/01/17 22:37 Dose: 650 mg Alprazolam (Xanax) 0.5 mg PO TID PRN; Protocol PRN Reason: Anxiety Last Admin: 04/02/17 14:10 Dose: 0.5 mg Aspirin (Ecotrin) 81 mg PO DAILY CHRISTINE Last Admin: 04/02/17 09:01 Dose: 81 mg Atorvastatin Calcium (Lipitor) 40 mg PO DIN CHRISTINE Last Admin: 04/02/17 17:31 Dose: 40 mg Cyclobenzaprine HCl (Flexeril) 10 mg PO TID PRN PRN Reason: Muscle spasm Last Admin: 04/01/17 21:23 Dose: 10 mg Digoxin (Lanoxin) 0.25 mg PO 1400 CHRISTINE Famotidine (Pepcid) 20 mg PO 1000,2200 CHRISTINE Last Admin: 04/02/17 09:04 Dose: Not Given Furosemide (Lasix) 40 mg IV DAILY CHRISTINE Gabapentin (Neurontin) 600 mg PO DAILY CHRISTINE PRN Reason: Protocol Last Admin: 04/02/17 09:03 Dose: Not Given Guaifenesin (Robitussin) 100 mg PO Q4H PRN PRN Reason: Cough Last Admin: 04/02/17 17:31 Dose: 100 mg Sodium Phosphate 15 mmole/ (Sodium Chloride) 255 mls @ 42.5 mls/hr IVPB ONCE ONE Stop: 04/03/17 03:05 Levalbuterol HCl (Xopenex) 0.63 mg IH [id number] PRN PRN Reason: Shortness of Breath Levalbuterol HCl (Xopenex) 1.25 mg IH TIDRESP CHRISTINE Lisinopril (Zestril) 2.5 mg PO DAILY CHRISTINE Lorazepam (Ativan) 1 mg IVP Q4 PRN; Protocol PRN Reason: Anxiety Last Admin: 04/02/17 15:09 Dose: 1 mg Lorazepam (Ativan) 4 mg IVP Q3H PRN; Protocol PRN Reason: EtOH Withdrawal Metoprolol Tartrate (Lopressor) 25 mg PO BID [facility] Last Admin: 04/02/17 17:30 Dose: 25 mg Morphine Sulfate (Morphine) 1 mg IVP Q4H PRN PRN Reason: Pain, severe (8-10) Nicotine (Nicoderm Cq) 1 patch TD DAILY [facility] Last Admin: 04/02/17 09:04 Dose: Not Given Spironolactone (Aldactone) 25 mg PO DAILY [facility] Tramadol HCl (Ultram) 50 mg PO TID PRN PRN Reason: Pain, moderate (4-7) Last Admin: 04/02/17 16:18 Dose: 50 mg - Labs Labs: 04/02/17 05:10 04/02/17 05:10 PT 10.5 Seconds (9.9-11.8) 03/31/17 10:26 INR 0.97 (0.93-1.08) 03/31/17 10:26 APTT 61.3 Seconds (23.7-30.8) H 04/01/17 15:00
[2017-04-03 00:26] VITALS: RESP 29; O2SAT 85
[2017-04-03 00:30] VITALS: BP 0/0; PULSE 79
--- NOTE | 2017-04-03 09:53 | CARD ---
APPROVED REPORT EKG Measurement Heart [id number] <Conclusion> Undetermined rhythm Left axis deviation Right bundle branch block Inferior infarct, age undetermined Abnormal ECG
[2017-04-03] MEDS ORDERED: Digoxin 250 mcg (0.25 mg) Tab PO SCH (14:00)
== END 2017-04-02 23:04 | DRG 123 ==
LOC: ED 09:49 → ERH 11:31 → 2RNO 14:08 → 2RSO 04-02 13:53 → CCU 04-02 22:16
PROVIDERS: ADMIT Internal Medicine; ATTEND Internal Medicine
PROC: 4A023N7 Measurement of Cardiac Sampling and Pressure, Left Heart, Percutaneous Approach (ICD-10-PCS; principal; 2017-04-02)
PROC: 5A1935Z Respiratory Ventilation, Less than 24 Consecutive Hours (ICD-10-PCS; 2017-04-02)
PROC: 5A12012 Performance of Cardiac Output, Single, Manual (ICD-10-PCS; 2017-04-02)
PROC: B2051ZZ Plain Radiography of Left Heart using Low Osmolar Contrast (ICD-10-PCS; 2017-04-02)
PROC: B2011ZZ Plain Radiography of Multiple Coronary Arteries using Low Osmolar Contrast (ICD-10-PCS; 2017-04-02)
PROC: 0BH17EZ Insertion of Endotracheal Airway into Trachea, Via Natural or Artificial Opening (ICD-10-PCS; 2017-04-02)
DX: I21.4 Non-ST elevation (NSTEMI) myocardial infarction (principal); I47.2 Ventricular tachycardia; F11.10 Opioid abuse, uncomplicated; R09.02 Hypoxemia; I25.10 Atherosclerotic heart disease of native coronary artery without angina pectoris; E11.9 Type 2 diabetes mellitus without complications; I10 Essential (primary) hypertension; I25.5 Ischemic cardiomyopathy; E78.5 Hyperlipidemia, unspecified; F17.210 Nicotine dependence, cigarettes, uncomplicated; G89.4 Chronic pain syndrome; E66.9 Obesity, unspecified; F41.9 Anxiety disorder, unspecified; Z91.14 Patient's other noncompliance with medication regimen; Z68.33 Body mass index [BMI] 33.0-33.9, adult